=== PATIENT | male | born 1955 | race Caucasian/White ===

== ENCOUNTER 2022-08-15 07:04 | Day surgery (SDC) | payer OTHER ==
[~2022-08-15 07:04] MED LIST: Lidocaine 0.5% 50 ML SDV ONE; Lidocaine 1% with EPINEPHrine 1:100,000 50 ML MDV ONE; Midazolam 1 MG/ML 2 ML SDV ONE; Propofol 200 MG/20 ML SDV ONE; fentaNYL 100 MCG/2 ML SDV ONE
[2022-08-15] MEDS ORDERED: Acetaminophen 500 MG Tab PO ONE (07:30)
[2022-08-15] MEDS ORDERED: Dextrose 5%-Lactated Ringers 1,000 ML IV SCH (07:45)
[2022-08-15] MEDS ORDERED: Albuterol/Ipratropium 3.0-0.5 MG/3 ML Neb Soln NEB ONE (08:00)
[2022-08-15] MEDS ORDERED: ceFAZolin 2 GM in Sodium Chloride 0.9% 50 ML IV ONE (08:00)
[2022-08-15] MEDS ORDERED: ceFAZolin 2 GM in Premix Bag 1 BAG IV ONE (08:15)
[2022-08-15] MEDS ORDERED: Ketorolac 30 MG/ML SDV ONE (10:25)
[2022-08-15] MEDS ORDERED: traMADol 50 MG Tab PO ONE (12:07)
== END 2022-08-15 12:26 | disposition home or self-care (01) ==
LOC: EDSEX → JP.SDS 07:04 → MERGE 13:45
PROVIDERS: ATTEND Surgery
DX: G56.02 Carpal tunnel syndrome, left upper limb (principal); I10 Essential (primary) hypertension; J44.9 Chronic obstructive pulmonary disease, unspecified; Z79.899 Other long term (current) drug therapy
CPT/HCPCS: 64721; 94640; A9270; J0690; J1885; J2250; J2704; J3010; J3490; J7121; J7620

== ENCOUNTER 2022-12-29 12:22 | Emergency (ER) | payer OTHER ==
[2022-12-29] MEDS ORDERED: Albuterol/Ipratropium 3.0-0.5 MG/3 ML Neb Soln NEB ONE (12:44)
== END 2022-12-29 13:58 | disposition home or self-care (01) ==
LOC: JP.ED 12:22
DX: J44.1 Chronic obstructive pulmonary disease with (acute) exacerbation (principal); I10 Essential (primary) hypertension; Z87.891 Personal history of nicotine dependence
CPT/HCPCS: 36415; 71046; 71046-26; 80048; 83605; 84484; 85025; 94640; 99283; 99285; J7620